=== PATIENT | female | born 1980 | race Caucasian/White ===

== ENCOUNTER → 2019-10-05 09:06 | Outpatient (CLI) | payer OTHER, SELFPAY ==
--- NOTE | ~2019-10-05 | XR_ITS ---
XR sacrum coccyx min 2V DATE: 10/05/2019 09:26 INDICATION: Right buttock pain for 1.5 years. No recent injury. TECHNIQUE: 3 views COMPARISON: None FINDINGS: An IUD overlies the pelvis. No sacral or coccygeal fracture or bone destruction is evident. Normal alignment at the pubic symphys is and sacroiliac joints. IMPRESSION: Negative sacrum and coccyx IUD Reviewed, dictated and finalized at location B.
== END ==
PROVIDERS: PCP Emergency Medicine; Visit Provider Emergency Medicine
DX: M54.5 Low back pain (principal); Z97.5 Presence of (intrauterine) contraceptive device
CPT/HCPCS: 72220

== ENCOUNTER → 2021-03-29 00:20 | Outpatient (CLI) | payer OTHER, SELFPAY ==
[2021-03-29 17:11] LABS: SARS-CoV-2 RNA PCR Negative
== END ==
PROVIDERS: PCP Emergency Medicine; Visit Provider Emergency Medicine
DX: R06.02 Shortness of breath (principal)
CPT/HCPCS: C9803; U0003; U0005

== ENCOUNTER 2021-08-01 01:05 | Day surgery (SDC) | payer OTHER, SELFPAY ==
[2021-07-24 14:59] VITALS: BMI 30.9
--- NOTE | 2021-07-24 15:00 | PC.NURSE ---
Report to the Outpatient Waiting Room, entrance under the green pavilion located off [facility], at time _0945_ on date _08-01-21_. OR Time: _1145_. - You and your visitor will be asked a series of questions to screen for COVID 19 for your protection. - Only one visitor is allowed at this time. - The patient visitor is requested to leave or wait in car when not with patient. - A mask is required within the hospital. Patients may have clear liquids (water, carbonated beverages, clear teas, apple juice) until 3 hours prior to surgery with a maximum of 20 ounces. - No food from midnight until time of surgery Take the following medications with a SIP of water the morning of surgery: None Medications to discontinue per physician None Date to take last dose Please no make-up, nail citizen of [place], hairspray, perfume, deodorant, or body powder the day of surgery. No jewelry (including any body piercings) or valuables the day of surgery, leave them at home. Please take a shower or bath the night before, or the morning of, surgery with an antibacterial soap. Wear comfortable, loose fitting clothing. Children are encouraged to wear pajamas. - Jewelry must be removed prior to entering the operating room. Rings and piercings that are not removed may be cut off. - The hospital will not accept responsibility for valuables. - Please leave all valuables, including medications, at home the day of surgery. If you are going home after surgery, a licensed school bus driver/teacher assistant must drive you home. - NO public transportation without another adult. - We recommend that an adult stay with you for 24 hours following discharge. - We also recommend that you do not drive, make important decision, drink alcoholic beverages, or take any drugs that were not prescribed by your health care provider for at least 24 hours after your discharge time. Follow any additional instructions given to you from your surgeon. If you or anyone in your household have experienced Covid symptoms in the past week, please notify your surgeon or the nurse liaison at the phone number below for possible testing. Telephone instructions given to __Patient and asked if any additional questions and then verbalized understanding. Patient advised to call surgeon office or pre surgery nurse liaison [phone] if any additional questions.
--- NOTE | 2021-07-29 07:30 | PM.IMHP ---
H&P: HPI History of Present Illness Date/Time: 07/29/21 07:30 Chief Complaint: retained IUD Narrative: is a 41-year-old female who was seen in the office. Her primary MD was unable to remove the IUD from inside her uterus. Ultrasound showed the IUD to be in the uterus but I was unable to remove in the office and will thus hysteroscopic clear. Risks and benefits reviewed [facility] Social History Social History Smoking status: Never smoker Living arrangements: with family Spiritual care concerns: No Meds Home Medications and Allergies Home Medications Medication Instructions Recorded Confirmed Type ondansetron 8 mg disintegrating 8 tablet PO BID PRN Nausea 07/24/21 07/24/21 History tablet prochlorperazine maleate 10 mg 10 mg PO Q6H PRN Nausea 07/24/21 07/24/21 History tablet (Compazine) Allergies Allergy/AdvReac Type Severity Reaction Status Date / Time No Known Allergies Allergy Mild Verified 07/24/21 14:49 Assessment and Plan Assessment and plan (1) Retained intrauterine contraceptive device (IUD): Code(s): T83.39XA - Other mechanical complication of intrauterine contraceptive device, initial encounter Status: Acute Plan retained IUD Additional Plan hysteroscopic removal of retained IUD
--- NOTE | 2021-08-01 07:11 | WPDHPUPDATE1 ---
History and Physical Update Update Date/Time: 08/01/21 07:11 History and Physical has been reviewed, including an updated exam of the patient. There are NO changes in the patient's condition. Risks, benefits, and alternatives have been discussed and questions answered. Patient agrees to proceed with procedure.
[2021-08-01] MEDS: ACETAMINOPHEN 500 MG TABLET 1000 MG PO (07:20)
[2021-08-01] MEDS: LACTATED RINGERS 1,000 ML 30 ML IV CONT (07:31)
--- NOTE | 2021-08-01 07:48 | P.PNAN_ITS ---
Anes - Initial Pre Proc Eval Procedure: Operation Date: 08/01/21 08:30 Proposed Procedures p Hysteroscopy with Removal Intrauterine Device - Edison Avitia MD Date/Time: 08/01/21 07:48 Surgeon: Edison Avitia MD Pre Op Diagnosis: Remove IUD, lost string Patient Data Age: 41 Gender: F Height: 1.52 m Weight: 73.8 kg Allergies Allergy/AdvReac Type Severity Reaction Status Date / Time No Known Allergies Allergy Mild Verified 08/01/21 06:44 Home Medications Medication Instructions Recorded Confirmed Type ondansetron 8 mg disintegrating 8 tablet PO BID PRN Nausea 07/24/21 07/24/21 History tablet prochlorperazine maleate 10 mg 10 mg PO Q6H PRN Nausea 07/24/21 07/24/21 History tablet (Compazine) hydrocodone 5 mg-acetaminophen 325 1 tablet PO Q4H PRN pain #14 tabs 08/01/21 Rx mg tablet Patient hx anesthesia problems: none Family hx anesthesia problems: none Results Review: All pre-operative results and documents have been reviewed as part of the pre- operative evaluation. [facility] Social History Social History Smoking status: Never smoker Living arrangements: with family Spiritual care concerns: No Anes - Eval Final PreProcedure Day of Procedure 08/01/21 07:48 Patient weight: obese Heart: regular rate and rhythm Lungs: clear to auscultation Airway: Mallampati scale class II Neurological: alert and oriented Last oral intake: >/= 8 hours ASA classification: II Emergent: no Anesthetic plan: proceed Anesthesia type and monitoring: general GIVS and standard monitoring Results Review: All pre-operative results and documents have been reviewed as part of the pre- operative evaluation. Informed Consent: The patient's anesthetic plan and its attendant risks and benefits were discussed with the patient/family/POA. Questions were solicited and answers provided to the satisfaction of the patient/family/POA.
--- NOTE | 2021-08-01 08:52 | W.PM.PROC2 ---
Procedure Note - Detailed Date of Procedure 08/01/21 Pre-op Diagnosis Remove IUD, lost string Post-op Diagnosis Same Procedure Performed Hysteroscopy/dilatation curettage removal of IUD Surgeon Edison Avitia MD Anesthesia MAC and Local Indications This 41-year-old female with an IUD was unable to be retrieved in the office Findings The IUD and string was found in the uterus. Uterus sounded to 10cm. Thick irregular endometrial tissue was found. Description of Procedure Patient was prepped draped normal sterile fashion placed in the dorsal lithotomy position. Under excellent IV sedation speculum placed in posterior fornix vagina. Anterior lip of the cervix grasped with a tenaculum. 10cc of 1% xylocaine anesthesia were split in 2-1/2 cc increments at 2:48 a.m. and 10:00 a.m. respectively of the cervix. Uterus sounded to 10cm. Serial dilatation was undertaken and IUD could be seen in the uterus and was removed without difficulty. The remainder of the uterine cavity appeared within normal limits. The uterus was scraped over the entire 360? until good grating sound was heard. When no further tissue could be removed the instruments removed. All sponge, needle, instrument counts were correct. There were no immediate complications Estimated Blood Loss 5 Drains No Packing No Pathology None sent Complications No immediate complications Condition Stable Disposition PACU
[2021-08-01 08:56] VITALS: BP 117/72; PULSE 78; RESP 12; O2SAT 98
[2021-08-01 09:25] VITALS: BP 120/70; PULSE 80; RESP 12
[2021-08-01 09:45] VITALS: BP 127/68; PULSE 80; RESP 12
== END 2021-08-01 09:55 | disposition home or self-care (01) ==
PROVIDERS: PCP Emergency Medicine; Visit Provider Obstetrics & Gynecology
PROC: 0U5B8ZZ Destruction of Endometrium, Via Natural or Artificial Opening Endoscopic (ICD-10-PCS; CPT 58563; principal; 2021-08-01 08:30)
DX: T83.39XA Other mechanical complication of intrauterine contraceptive device, initial encounter (principal); N85.8 Other specified noninflammatory disorders of uterus; E66.9 Obesity, unspecified; Z68.31 Body mass index [BMI] 31.0-31.9, adult
CPT/HCPCS: 58562; 88305; A9270; J2250; J2270; J2405; J2704; J7030; J7120

== ENCOUNTER 2024-05-03 14:53 | Emergency (ER) | payer BC, SELFPAY ==
[2024-05-03 15:03] VITALS: BP 140/86; PULSE 90; RESP 16; TEMP 36.7; O2SAT 100
--- NOTE | 2024-05-03 15:08 | ED_ITS ---
HPI - URI/Sore Throat General Chief Complaint: Upper Respiratory Infection Stated Complaint: sorethroat Time Seen by Provider: 05/03/24 15:09 Source: patient, RN notes reviewed and old records reviewed Mode of arrival: ambulatory Limitations: no limitations History of Present Illness HPI Narrative: Patient presents with complaints of flu-like symptoms that began last night. She has not been taking anything for her symptoms. She is not in any obvious distress. Related Data Allergies Allergy/AdvReac Type Severity Reaction Status Date / Time No Known Allergies Allergy Mild Verified 05/03/24 14:56 Review of Systems Review of Systems: All systems reviewed & are unremarkable except as noted in HPI and below Constitutional: Constitutional: Reports no additional constitutional complaints, Reports body ache(s), Reports chills, Reports headache(s) and Reports lethargy ENT: Reports system reviewed and no additional complaints, except as documented, Reports nasal congestion, Reports nasal discharge and Reports sinus pressure Cardiovascular: Cardiovascular: Reports no additional cardiovascular complaints Respiratory: Respiratory: Reports no additional respiratory complaints and Reports cough Gastrointestinal: Gastrointestinal: Reports no additional gastrointestinal complaints PMFSH Social History Social History Smoking status: Never smoker Living arrangements: with family Spiritual care concerns: No Comments At the time of my signature, I reviewed and agree with the nursing past medical, surgical, social, and family history. There is no relevant family history pertinent to the patient complaint. Exam Const: General: cooperative, no acute distress, alert and awake Orientation/consciousness: oriented to person, oriented to place and oriented to time HENMT: Head: normal to inspection Mouth: Yes moist mucous membranes Resp: Effort & Inspection: normal respiratory effort and able to speak in complete sentences Auscultation: clear to auscultation bilaterally, no crackles, no rales, no rhonchi and no wheezes Cardio: Palpation: normal PMI Rate: regular rate Rhythm: regular rhythm Heart sounds: S1 normal heart sound present and S2 normal heart sound present Neuro: General: oriented to person, oriented to place and oriented to time Cranial nerves: Yes CN's II-XII intact bilaterally Psych: Appearance: grossly normal Thought process: Normal thought process present Insight: Good insight present (Psych) Judgement: Good judgement present (Psych) Course Course Level of Care: Express Care Visit Vital Signs Vital signs: Reviewed MDM - URI/Sore Throat MDM Narrative Medical decision making narrative: Reassuring physical exam. Patient not in any obvious distress. Nontoxic appearing. Supportive care measures discussed. Discharge instructions reviewed with patient, as well as provided in writing per nursing staff. The instructions also include specific and strict return/GO TO THE ER as well as f/u information. All questions have been answered, and the patient deny any further questions with discharge and discharge plan. Some parts of this dictation were generated by voice recognition software and may contain typographical and/or grammatical inaccuracies. Differential Diagnosis Differential diagnosis: Likely upper respiratory infection, otitis media, sinusitis, viral infection, influenza and pharyngitis Medical Records Attestation: I reviewed the patient's medical records. Lab Data Attestation: I reviewed the patient's lab results. Discharge Plan Discharge Clinical Impression: Influenza Patient Disposition: Home, Self-Care Condition: Stable Instructions: Antibiotic Form, Influenza (ED) Additional Instructions: Take medications as prescribed. Follow with primary care provider. Emergency department for new or worse symptoms Patient Language: Persian Prescriptions: New oseltamivir [Tamiflu] 75 mg capsule 75 mg PO Q12H 5 Days Qty: 10 0RF Follow-up/Referrals: Abelardo Klein MD [Primary Care Provider] - 2 Weeks Time of Disposition: 15:33
[2024-05-03 15:27] LABS: EDCOVIDSCREEN Negative (Negative); EDINFLUASCREEN Positive (Negative); EDINFLUBSCREEN Negative (Negative); EDSTREPNEGPOS1 Negative (Negative)
== END 2024-05-03 15:40 | disposition home or self-care (01) ==
PROVIDERS: Emergency Provider Nurse Practitioner Family; PCP Emergency Medicine
DX: J10.1 Influenza due to other identified influenza virus with other respiratory manifestations (principal); Z20.822 Contact with and (suspected) exposure to COVID-19; Z85.038 Personal history of other malignant neoplasm of large intestine; Z92.21 Personal history of antineoplastic chemotherapy; Z90.49 Acquired absence of other specified parts of digestive tract
CPT/HCPCS: 87081; 87426; 87804; 87880; 99213; G0463